=== PATIENT | female | born 1995 | race Asian ===

== ENCOUNTER 2020-10-01 19:34 | Emergency (ER) | payer BC ==
[~2020-10-01] VITALS: Ht 157.5 cm; Wt 55.6 kg
[2020-10-01 19:49] VITALS: BP 104/47
--- NOTE | 2020-10-01 23:10 | NUR ---
Sitting in chair, texting on phone. Waiting for ERP evaluation. NAD.
[2020-10-02 00:10] LABS: BASOPHILS % (AUTO) 2 % (0-1); EOSINOPHILS % (AUTO) 5 % (1-7); LYMPHOCYTES % (AUTO) 35 % (22-44); MEAN CORPUSCULAR HEMOGLOBIN 28.1 pg (27.0-34.8); MEAN CORPUSCULAR HGB CONC 33.5 g/dL (32.4-35.8); MEAN PLATELET VOLUME 8.3 fL (7.4-10.4); MONOCYTES % (AUTO) 8 % (2-9); NEUTROPHILS % (AUTO) 50 % (42-75); PLATELET COUNT 328 x10^3/uL (130-400); RED BLOOD COUNT 4.58 x10^6/uL (3.82-5.3); RED CELL DISTRIBUTION WIDTH 14.1 % (9.6-15.2)
[2020-10-02 00:17] LABS: ALBUMIN 4.1 g/dL (3.4-5.0); ANION GAP 6 mmol/L (5-15); CALCIUM 9.4 mg/dL (8.5-10.1); CHLORIDE 106 mmol/L (98-107); CREATININE 0.64 mg/dL (0.55-1.02)
--- NOTE | 2020-10-02 00:51 | NUR ---
task rn: report of pt from eleanor quach and assuming care of pt at this time.
--- NOTE | 2020-10-02 01:21 | NUR ---
f/u and d/c instructions given to pt with prescriptions and she v/u. pt d/c'd without incident ambulating.
== END 2020-10-02 01:23 | disposition home or self-care (01) ==
LOC: ED 10-02 00:04
DX: R07.89 Other chest pain (principal); R06.02 Shortness of breath; R94.31 Abnormal electrocardiogram [ECG] [EKG]; J45.909 Unspecified asthma, uncomplicated
CPT/HCPCS: 36415; 71045; 80048; 82040; 84443; 84703; 85025; 93005; 99285